=== PATIENT | male | born 1990 | race American Indian/Alaskan Native ===

== ENCOUNTER 2017-08-16 12:46 | Emergency (ER) | payer SELFPAY ==
[2017-08-16 17:24] LABS: Bilirubin,Urine NEG (Negative); Blood,Urine SM (Negative); Color,Urine Yellow (Yellow); Nitrite,Urine NEG (Negative); Urobilinogen,Urine < 2.0 mg/dL (<2.0)
--- NOTE | 2017-08-16 18:35 | Emergency Department Report ---
ED Male HPI - General Chief complaint: Urogenital-Male Stated complaint: BURNING/ITCHING IN GROIN AREA Time Seen by Provider: 08/16/17 18:25 Source: patient Mode of arrival: Ambulatory Limitations: No Limitations - History of Present Illness Initial comments: 7-year-old -Portuguese male comes in for complaint of penile discharge and dysuria. She reports is sexually active with females has unprotected. He denies any fever chills no nausea vomiting no abdominal pain. Past medical history currently taking no medications. Have a allergy to penicillin. MD Complaint: penile discharge, dysuria - Related Data Previous Rx's Medication Instructions Recorded Last Taken Type Azithromycin [Zithromax TAB] 1,000 mg PO QDAY #2 tablet 08/16/17 Unknown Rx Doxycycline [Vibramycin CAP] 100 mg PO Q12HR 10 Days #20 capsule 08/16/17 Unknown Rx metroNIDAZOLE [Flagyl] 2,000 mg PO ONCE #4 tab 08/16/17 Unknown Rx Allergies Allergy/AdvReac Type Severity Reaction Status Date / Time Penicillins Allergy Unknown Verified 08/16/17 12:57 ED Review of Systems ROS: Stated complaint: BURNING/ITCHING IN GROIN AREA Other details as noted in HPI Constitutional: denies: chills, fever Eyes: denies: eye pain, eye discharge, vision change ENT: denies: ear pain, throat pain Respiratory: denies: cough, shortness of breath, wheezing Cardiovascular: denies: chest pain, palpitations Endocrine: no symptoms reported Gastrointestinal: denies: abdominal pain, nausea, diarrhea Genitourinary: dysuria, discharge Musculoskeletal: denies: back pain, joint swelling, arthralgia Skin: denies: rash, lesions Neurological: denies: headache, weakness, paresthesias Psychiatric: denies: anxiety, depression ED Past Medical Hx - Past Medical History Previous Medical History?: No - Surgical History Past Surgical History?: No - Social History Smoking Status: Current Every Day Smoker Substance Use Type: None - Medications Home Medications: Home Medications Medication Instructions Recorded Confirmed Last Taken Type Azithromycin [Zithromax TAB] 1,000 mg PO QDAY #2 tablet 08/16/17 Unknown Rx Doxycycline [Vibramycin CAP] 100 mg PO Q12HR 10 Days #20 capsule 08/16/17 Unknown Rx metroNIDAZOLE [Flagyl] 2,000 mg PO ONCE #4 tab 02/12/18 Unknown Rx ED Physical Exam - General Limitations: No Limitations General appearance: alert, in no apparent distress - Head Head exam: Present: atraumatic, normocephalic - Eye Eye exam: Present: normal appearance - Respiratory Respiratory exam: Present: normal lung sounds bilaterally. Absent: respiratory distress - Cardiovascular Cardiovascular Exam: Present: regular rate, normal rhythm. Absent: systolic murmur, diastolic murmur, rubs, gallop - GI/Abdominal GI/Abdominal exam: Present: soft, normal bowel sounds - Extremities Exam Extremities exam: Present: normal inspection - Back Exam Back exam: Present: normal inspection - Neurological Exam Neurological exam: Present: alert, oriented X3 - Psychiatric Psychiatric exam: Present: normal affect, normal mood - Skin Skin exam: Present: warm, dry, intact, normal color. Absent: rash ED Course Vital Signs 08/16/17 12:55 Temperature 98.1 F Pulse Rate 84 Respiratory 16 Rate Blood Pressure 139/87 O2 Sat by Pulse 97 Oximetry ED Medical Decision Making - Medical Decision Making Patient has been evaluated by this provider fast track. I discussed with patient that he has elevated white count in his urine. I also discussed with patient that we will treat him as a STD. I discussed the patient would discharge him on doxycycline 100 mg twice a day for 10 days. I did also discuss with him I give him a Zithromax and and Flagyl. And that he needs to refrain from intercourse for 2 weeks and increased N and notify his partner that he's been treated and tested for STDs. I also discussed the patient that this is best taken care of by the health Department patient verbalizes understanding. Critical care attestation.: If time is entered above; I have spent that time in minutes in the direct care of this critically ill patient, excluding procedure time. ED Disposition Clinical Impression: STD (male) Disposition: DC-01 TO HOME OR SELFCARE Is pt being admited?: No Does the pt Need Aspirin: No Condition: Stable Instructions: Safe Sex (ED), Sexually Transmitted Diseases (ED) Additional Instructions: Please inform her sexual partner that he been treated and tested. Please do not have intercourse with that partner without her being treated. Please refrain from intercourse for 2 weeks. Follow-up at the health department in 3- 5 days. Prescriptions: Azithromycin [Zithromax TAB] 1,000 mg PO QDAY #2 tablet Doxycycline [Vibramycin CAP] 100 mg PO Q12HR 10 Days #20 capsule metroNIDAZOLE [Flagyl] 2,000 mg PO ONCE #4 tab Referrals: [facility] Depart [Outside] - 3-5 Days Forms: Work/School Release Form(ED)
[2017-08-16 20:05] VITALS: BP 138/69
== END 2017-08-16 18:38 | disposition home or self-care (01) ==
LOC: ED 12:46
DX: A63.8 Other specified predominantly sexually transmitted diseases (principal); F17.200 Nicotine dependence, unspecified, uncomplicated; Z88.0 Allergy status to penicillin
CPT/HCPCS: 81001; 99283